=== PATIENT | female | born 1990 | race Caucasian/White ===

== ENCOUNTER → 2017-03-06 | Outpatient (CLI) | payer OTHER ==
[~2017-03-06] MED LIST: ACHYD1T PO; AMLO5TAB2 PO; ASP325T PO; CARV12.53 PO; CARV25TA PO; CIPR-225 PO; DCS100C PO; DIGO250T96 PO; FURO40TA4 PO; HYDR-3812 PO; IBP800T PO; LOSA1TAB15 PO; MAGN400T6 PO; ONDA4TAB8 PO; POTA20TA15 PO; PROP1TAB77 PO; QUIN20TA27 PO; QUIN5TAB PO; RABE20TA PO; TRM50T PO; VITA1TAB98 PO
== END ==
LOC: CARD 11:49
PROVIDERS: ATTEND Physician Assistant
DX: I11.0 Hypertensive heart disease with heart failure (principal); I50.9 Heart failure, unspecified; R06.00 Dyspnea, unspecified; I34.0 Nonrheumatic mitral (valve) insufficiency
CPT/HCPCS: 93306

== ENCOUNTER → 2017-06-05 | Outpatient (CLI) | payer OTHER ==
[~2017-06-05] MED LIST changes: +CATHETER FLUSH 10 ML SYR IV PRN; +HEParin (CENTRAL IV FLUSH) 500 UNIT/5 ML SYR ONE
--- NOTE | 2017-06-06 22:09 | STRESS TEST ---
DATE OF SERVICE: 06/05/2017 MUGA SCAN REPORT In summary, the patient was injected with 29.7 mCi of technetium-99 labelled RBCs. Images were acquired and reviewed in the left anterior oblique, right anterior oblique, anterior and lateral views. Review of the images showed the left ventricle to be in normal size with improvement in contractility, calculated ejection fraction 59%. CONCLUSION: Normal left ventricular size, calculated ejection fraction 59%. Job ID: [id number] DocumentID: [id number] Dictated Date: 06/06/2017 14:31:18 Lumber Puller Date: 06/06/2017 18:21:05 Dictated By: KIESHA JENSEN MD
== END ==
LOC: CARD 13:40
PROVIDERS: ATTEND Internal Medicine Cardiovascular Disease
DX: I50.9 Heart failure, unspecified (principal)
CPT/HCPCS: 78472

== ENCOUNTER → 2018-10-07 | Outpatient (CLI) | payer BC ==
[~2018-10-07] MED LIST changes: +ACHD5005 PO; -CATHETER FLUSH 10 ML SYR IV PRN; -HEParin (CENTRAL IV FLUSH) 500 UNIT/5 ML SYR ONE; -HYDR-3812 PO
== END ==
LOC: CARD 08:00
PROVIDERS: ATTEND Internal Medicine Cardiovascular Disease
DX: I50.9 Heart failure, unspecified (principal); R06.00 Dyspnea, unspecified; I08.1 Rheumatic disorders of both mitral and tricuspid valves; E66.9 Obesity, unspecified; Z68.39 Body mass index [BMI] 39.0-39.9, adult
CPT/HCPCS: 93306

== ENCOUNTER 2018-12-27 21:46 | Emergency (ER) | payer BC ==
[~2018-12-27] VITALS: Ht 154.9 cm; Wt 113.4 kg
--- NOTE | 2018-12-27 21:51 | NUR ---
arrives to ED ambulitory to restroom, sample obtained
--- NOTE | 2018-12-27 21:52 | NUR ---
patient arrives to room 5 ambulating independently. made comfortable in bed with call light in reach.
[2018-12-27] MEDS ORDERED: ONDANSETRON 4 MG/2 ML (SDV) Z0FRAN IVP ONE (22:00)
[2018-12-27] MEDS ORDERED: LACTATED RINGERS 1,000 ML IV ONE (22:00)
[2018-12-27] MEDS ORDERED: KETOROLAC 30 MG/ML VIAL IVP STA (22:00)
[2018-12-27] MEDS ORDERED: CARVEDILOL 25 MG (22:02)
[2018-12-27] MEDS ORDERED: AMLODIPINE BESYLATE 10 MG TABS (22:02)
[2018-12-27 22:03] LABS: BILIRUBIN,URINE NEGATIVE (NEGATIVE); CLARITY,URINE CLEAR; COLOR,URINE YELLOW; GLUCOSE, URINE (UA) NEGATIVE (NEGATIVE); KETONES,URINE NEGATIVE (NEGATIVE); LEUKOCYTE ESTERASE ,URINE NEGATIVE (NEGATIVE); NITRITE,URINE NEGATIVE (NEGATIVE); PH,URINE 8 (5-9); PROTEIN,URINE 3+ (NEGATIVE); UROBILINOGEN,URINE NORMAL (NORMAL)
--- NOTE | 2018-12-27 22:05 | ED Abdominal Pain ---
General Chief Complaint: General Problems/Pain Stated Complaint: L SIDE PAIN/NAUSEA Source of Information: Patient History of Present Illness Date Seen by Provider: Dec 27, 2018 Time Seen by Provider: 21:53 Initial Comments PT ARRIVES VIA POV FROM HOME C/O LLQ/LEFT PELVIC PAIN SINCE Sunday12/23/09 TOOK IBUPROFEN, ULTRAM AND BENADRYL TODAY AT 1730 WITHOUT RELIEF OTHERWISE HAS NOT TAKEN ANYTHING ELSE FOR PAIN SYMPTOMS NO DIFFERENT TODAY HAS NOT SOUGHT CARE UNTIL TODAY + NAUSEA, VOMITED X 3 NO DIARRHEA, NORMAL BM TODAY NO FEVER NO URINARY SYMPTOMS PT HAS HAD HYST/RSO IN 2014 PT HAS HISTORY OF KIDNEY STONES PT STATES "IT FEELS LIKE MY OVARY" PCP: JUDD WU AT DR. MARTIN'S OFFICE Allergies and Home Medications Allergies Coded Allergies: No Known Drug Allergies (Unverified , 01/05/10) Home Medications Aspirin 325 Mg Tab, 325 MG PO DAILY, (Reported) Carvedilol 25 Mg Tablet, 25 MG PO BID, (Reported) Furosemide Unknown Strength Tablet, Unknown Dose PO DAILY PRN PRN for DISCOMFORT, (Reported) Ketorolac Tromethamine 10 Mg Tablet, 10 MG PO Q6H Prescribed by: DREW CHAUDHRY on 12/27/18 2331 Levofloxacin 500 Mg Tablet, 500 MG PO DAILY Prescribed by: DREW CHAUDHRY on 12/27/18 2330 Tramadol HCl 50 Mg Tablet, 50 MG PO Q4H PRN for PAIN-MODERATE Prescribed by: DREW CHAUDHRY on 12/27/181 Patient Home Medication List Home Medication List Reviewed: Yes Review of Systems Review of Systems Constitutional: no symptoms reported; No fever Respiratory: No Symptoms Reported Cardiovascular: No Symptoms Reported Gastrointestinal: See HPI, Abdominal Pain; Denies Diarrhea; Nausea, Vomiting Genitourinary: No Symptoms Reported Musculoskeletal: no symptoms reported Skin: no symptoms reported Psychiatric/Neurological: No Symptoms Reported Endocrine: No Symptoms Reported Hematologic/Lymphatic: No Symptoms Reported Past Qnnmcps-Ohknbd-Sqgtik Hx Patient Social History Alcohol Use: Regular Use (COUPLE OF TIMES A WEEK) Recreational Drug Use: Yes (THC) Drug of Choice: THC Smoking Status: Current Everyday Smoker (<1 PK/WEEK) Recent Foreign Travel: No Contact w/Someone Who Travel: No Past Medical History Surgeries: Yes (HYST/RSO/ANTERIOR REPAIR 2014; URETERAL STENTS AND KIDNEY STONE REMOVAL; RIGHT WRIST FX/REPAIR CHILD) Hysterectomy, Oophorectomy, Orthopedic, Renal Respiratory: No Cardiac: Yes (CHF--POST CARDIOMYOPATHY) Hypertension Neurological: No Reproductive Disorders: Yes Female Reproductive Disorders: Menstrual Problems, Ovarian Cyst Genitourinary: Yes Kidney Stones Gastrointestinal: No Musculoskeletal: Yes (RIGHT WRIST FX/REPAIR CHILD) Fractures Endocrine: Yes (OBESITY) HEENT: No Cancer: No Psychosocial: No Integumentary: No Blood Disorders: No Family Medical History Asthma 19 FATHER 19 MOTHER G8 BROTHER G8 SISTER Cardiovascular disease 19 MOTHER Diabetes mellitus 19 MOTHER Drug abuse 19 FATHER 19 MOTHER Hypertension 19 FATHER 19 MOTHER No Family History of: AIDS Abdominal aortic aneurysm Alcoholism Alzheimer's disease Aphasia Arthritis Cataracts Colon cancer Completed stroke Dementia Gastroenteritis Kidney disease Myocardial infarction Parkinson's disease Prostate cancer Respiratory disorder Seizure disorder Severe allergy Thyroid disease Tuberculosis Physical Exam Vital Signs Vital Signs - First Documented 12/27/18 21:52 Temp 97.9 Pulse 86 Resp 20 B/P (MAP) 153/108 (123) Pulse Ox 96 Capillary Refill : Height/Weight/BMI Height: 5'1" Weight: 210lbs. oz. 95.882801ul; 39.67 BMI Method:Stated General Appearance: no apparent distress, obese, other (SITTING [place]-STYLE; DRAMATIC) Respiratory: normal breath sounds Cardiovascular: regular rate, rhythm, no murmur Gastrointestinal: normal bowel sounds, soft, no organomegaly, no pulsatile mass; No distended, No guarding, No rebound; tenderness (LLQ) Extremities: normal inspection Back: no CVA tenderness, other (MILD MID LOWER BACK TENDERNESS) Neurologic/Psychiatric: clinic receptionist II-XII nml as tested, no motor/sensory deficits, alert, normal mood/affect, oriented x 3 Skin: normal color, warm/dry; No rash Progress/Results/Core Measures Results/Orders Lab Results Laboratory Tests Test 12/27/18 21:49 12/27/18 22:05 Range/Units Urine Color YELLOW Urine Clarity CLEAR Urine pH 8 5-9 Urine Specific [place] 1.015 L 1.016-1.022 Urine Protein 3+ H NEGATIVE Urine Glucose (UA) NEGATIVE NEGATIVE Urine Ketones NEGATIVE NEGATIVE Urine Nitrite NEGATIVE NEGATIVE Urine Bilirubin NEGATIVE NEGATIVE Urine Urobilinogen NORMAL NORMAL MG/DL Urine Leukocyte Esterase NEGATIVE NEGATIVE Urine RBC (Auto) NEGATIVE NEGATIVE Urine RBC NONE /HPF Urine WBC NONE /HPF Urine Squamous Epithelial Cells 2-5 /HPF Urine Crystals NONE /LPF Urine Bacteria TRACE /HPF Urine Casts NONE /LPF Urine Mucus NEGATIVE /LPF Urine Culture Indicated NO Urine Opiates Screen NEGATIVE NEGATIVE Urine Oxycodone Screen NEGATIVE NEGATIVE Urine Methadone Screen NEGATIVE NEGATIVE Urine Propoxyphene Screen NEGATIVE NEGATIVE Urine Barbiturates Screen NEGATIVE NEGATIVE Ur Tricyclic Antidepressants Screen NEGATIVE NEGATIVE Urine Phencyclidine Screen NEGATIVE NEGATIVE Urine Amphetamines Screen NEGATIVE NEGATIVE Urine Methamphetamines Screen NEGATIVE NEGATIVE Urine Benzodiazepines Screen NEGATIVE NEGATIVE Urine Cocaine Screen NEGATIVE NEGATIVE Urine Cannabinoids Screen NEGATIVE NEGATIVE White Blood Count 19.7 H 4.3-11.0 10^3/uL Red Blood Count 4.72 4.35-5.85 10^6/uL Hemoglobin 14.1 11.5-16.0 G/DL Hematocrit 42 35-52 % Mean Corpuscular Volume 89 80-99 FL Mean Corpuscular Hemoglobin 30 25-34 PG Mean Corpuscular Hemoglobin Concent 34 32-36 G/DL Red Cell Distribution Width 13.5 10.0-14.5 % Platelet Count 442 H 130-400 10^3/uL Mean Platelet Volume 9.2 7.4-10.4 FL Neutrophils (%) (Auto) 88 H 42-75 % Lymphocytes (%) (Auto) 9 L 12-44 % Monocytes (%) (Auto) 3 0-12 % Eosinophils (%) (Auto) 0 0-10 % Basophils (%) (Auto) 0 0-10 % Neutrophils # (Auto) 17.3 H 1.8-7.8 X 10^3 Lymphocytes # (Auto) 1.8 1.0-4.0 X 10^3 Monocytes # (Auto) 0.5 0.0-1.0 X 10^3 Eosinophils # (Auto) 0.0 0.0-0.3 10^3/uL Basophils # (Auto) 0.0 0.0-0.1 10^3/uL Neutrophils % (Manual) 83 % Lymphocytes % (Manual) 10 % Monocytes % (Manual) 1 % Eosinophils % (Manual) 0 % Basophils % (Manual) 0 % Band Neutrophils 3 % Reactive Lymphocytes 3 % Polychromasia SLIGHT Anisocytosis SLIGHT Sodium Level 136 135-145 MMOL/L Potassium Level 4.1 3.6-5.0 MMOL/L Chloride Level 103 98-107 MMOL/L Carbon Dioxide Level 21 21-32 MMOL/L Anion Gap 12 5-14 MMOL/L Blood Urea Nitrogen 7 7-18 MG/DL Creatinine 0.69 0.60-1.30 MG/DL Estimat Glomerular Filtration Rate > 60 BUN/Creatinine Ratio 10 Glucose Level 158 H 70-105 MG/DL Calcium Level 9.9 8.5-10.1 MG/DL Corrected Calcium 9.5 8.5-10.1 MG/DL Total Bilirubin 0.8 0.1-1.0 MG/DL Aspartate Amino Transf (AST/SGOT) 10 5-34 U/L Alanine Aminotransferase (ALT/SGPT) 16 0-55 U/L Alkaline Phosphatase 83 40-136 U/L Total Protein 8.0 6.4-8.2 GM/DL Albumin 4.5 3.2-4.5 GM/DL Amylase Level 31 25-125 U/L Lipase 11 8-78 U/L Serum Alcohol < 10 <10 MG/DL My Orders Orders - DREW CHAUDHRY DO Drug Screen Stat (Urine) (12/27/18 21:53) Ua Culture If Indicated (12/27/18 21:53) Ed Iv/Invasive Line Start (12/27/18 22:00) Ct Abd/Pelvis Wo(Kidney Stone) (12/27/18 22:00) Acute Abd Series (12/27/18 22:00) Alcohol (12/27/18 22:00) Amylase (12/27/18 22:00) Cbc With Automated Diff (12/27/18 22:00) Comprehensive Metabolic Panel (12/27/18 22:00) Lipase (12/27/18 22:00) Ed Iv/Invasive Line Start (12/27/18 22:00) Lactated Ringers (Lr 1000 Ml Iv Solution (12/27/18 22:00) Ondansetron Injection (Zofran Injectio (12/27/18 22:00) Ketorolac Injection (Toradol Injection) (12/27/18 22:00) Manual Differential (12/27/18 22:05) Ceftriaxone For Iv Use (Rocephin For I (12/27/18 23:45) Rx-Tramadol Hcl (Rx-Ultram) (12/27/18 23:32) Fentanyl Injection (Sublimaze Injection (12/27/18 23:45) Medications Given in ED Current Medications Medications Dose Ordered Sig/Parveen Route Start Time Stop Time Status Last Admin Dose Admin Ceftriaxone Sodium 1000 mg/ Sterile Water 10 ml @ 200 mls/hr ONCE ONCE IV 12/27/18 23:45 12/27/18 23:47 12/27/18 23:40 200 MLS/HR Fentanyl Citrate 50 mcg ONCE ONCE IVP 12/27/18 23:45 12/27/18 23:46 12/27/18 23:40 50 MCG Lactated Ringer's 1,000 ml @ 0 mls/hr Q0M ONCE IV 12/27/18 22:00 12/27/18 22:02 DC 12/27/18 22:08 1,000 MLS/HR Ondansetron HCl 4 mg ONCE ONCE IVP 12/27/18 22:00 12/27/18 22:02 DC 12/27/18 22:08 4 MG Vital Signs/I&O 12/27/18 21:52 Temp 97.9 Pulse 86 Resp 20 B/P (MAP) 153/108 (123) Pulse Ox 96 Progress Progress Note : Progress Note PAIN EASED AT DISMISSAL DISCUSSED THE IMPORTANCE OF FOLLOW UP WITH DR. VAIL FOR FURTHER CARE AND EVALUATION OF PELVIC MASS. PT HAD HYST WITH RSO IN 2014 PT WAS HERE IN 2016 FOR THIS SAME LLQ PAIN, AND WAS TOLD AT THAT TIME SHE HAD A COMPLEX LEFT ADNEXAL MASS--WAS 3.2 CM AT THAT TIME--AND WAS ADVISED TO FOLLOW UP WITH DR. VAIL FOR FURTHER CARE AT THAT TIME Diagnostic Imaging Comments ACUTE ABDOMEN XRAYS--NO ACUTE PROCESS, PENDING RADIOLOGIST REVIEW CT ABDOMEN/PELVIS--COMPLEX PELVIC MASS, 7.4 X 7.5 X 5 CM--PER [facility] RADIOLOGIST VIA FAX AT 2310 AND DISCUSSED VIA PHONE AT 2311 Departure Impression Primary Impression: LLQ abdominal pain Additional Impressions: COMPLEX PELVIC MASS Leukocytosis Disposition: HOME, SELF-CARE Condition: Stable Departure-Patient Inst. Referrals: SINGH VAIL MD, JOHN D MD (PCP/Family) Primary Care Physician Patient Instructions: Acute Pelvic Pain (DC) Add. Discharge Instructions: FOLLOW UP WITH DR. VAIL NEXT WEEK FOR FURTHER CARE All discharge instructions reviewed with patient and/or family. Voiced understanding. Scripts Tramadol HCl (Ultram) 50 Mg Tablet 50 MG PO Q4H PRN for PAIN-MODERATE for 3 Days, TAB Prov: DREW CHAUDHRY DO 12/27/18 Ketorolac Tromethamine (Ketorolac Tromethamine) 10 Mg Tablet 10 MG PO Q6H for Pain, #15 TAB Prov: DREW CHAUDHRY DO 12/27/18 Levofloxacin (Levaquin) 500 Mg Tablet 500 MG PO DAILY for INFECTION, #10 TAB Prov: DREW CHAUDHRY DO 12/27/18 DREW CHAUDHRY DO Dec 27, 2018 22:05
[2018-12-27 22:08] LABS: BACTERIA,URINE TRACE /HPF
[2018-12-27 22:13] LABS: BASOPHILS % (AUTO) 0 % (0-10); EOSINOPHILS % (AUTO) 0 % (0-10); HEMATOCRIT 42 % (35-52); HEMOGLOBIN 14.1 G/DL (11.5-16.0); LYMPHOCYTES # (AUTO) 1.8 X 10^3 (1.0-4.0); LYMPHOCYTES % (AUTO) 9 % (12-44); MEAN CORPUSCULAR HEMOGLOBIN 30 PG (25-34); MEAN CORPUSCULAR HGB CONC 34 G/DL (32-36); MEAN CORPUSCULAR VOLUME 89 FL (80-99); MEAN PLATELET VOLUME 9.2 FL (7.4-10.4); MONOCYTES # (AUTO) 0.5 X 10^3 (0.0-1.0); MONOCYTES % (AUTO) 3 % (0-12); NEUTROPHILS # (AUTO) 17.3 X 10^3 (1.8-7.8); NEUTROPHILS % (AUTO) 88 % (42-75); PLATELET COUNT 442 10^3/uL (130-400); RED CELL DISTRIBUTION WIDTH 13.5 % (10.0-14.5); WHITE BLOOD COUNT 19.7 10^3/uL (4.3-11.0)
[2018-12-27 22:14] LABS: AMPHETAMINE SCREEN, URINE NEGATIVE (NEGATIVE); BARBITURATE SCREEN URINE NEGATIVE (NEGATIVE); BENZODIAZEPINES SCREEN URINE NEGATIVE (NEGATIVE); CANNABINOID SCREEN, URINE NEGATIVE (NEGATIVE); COCAINE SCREEN URINE NEGATIVE (NEGATIVE); METHADONE STAT NEGATIVE (NEGATIVE); METHAMPHETAMINE SCREEN URINE S NEGATIVE (NEGATIVE); OPIATE SCREEN URINE NEGATIVE (NEGATIVE); OXYCODONE STAT NEGATIVE (NEGATIVE); PROPOXYPHENE STAT NEGATIVE (NEGATIVE); TRICYCLIC ANTIDEPRESSANTS SCRE NEGATIVE (NEGATIVE)
[2018-12-27 22:29] LABS: ANISOCYTOSIS SLIGHT; BAND NEUTROPHILS 3 %; BASOPHILS % (MANUAL) 0 %; EOSINOPHILS % (MANUAL) 0 %; LYMPHOCYTES % (MANUAL) 10 %; MONOCYTES % (MANUAL) 1 %; NEUTROPHILS % (MANUAL) 83 %; POLYCHROMASIA SLIGHT; REACTIVE LYMPHOCYTES 3 %
[2018-12-27 22:33] LABS: ALANINE AMINOTRANSFERASE 16 U/L (0-55); ALBUMIN 4.5 GM/DL (3.2-4.5); ALKALINE PHOSPHATASE 83 U/L (40-136); AMYLASE 31 U/L (25-125); BILIRUBIN,TOTAL 0.8 MG/DL (0.1-1.0); BUN/CREATININE RATIO 10; CALCIUM 9.9 MG/DL (8.5-10.1); CARBON DIOXIDE 21 MMOL/L (21-32); CHLORIDE 103 MMOL/L (98-107); CREATININE SERUM 0.69 MG/DL (0.60-1.30); GFR ESTIMATED > 60; GLUCOSE 158 MG/DL (70-105); LIPASE 11 U/L (8-78); POTASSIUM 4.1 MMOL/L (3.6-5.0); SODIUM 136 MMOL/L (135-145)
[2018-12-27] MEDS ORDERED: SACU1TAB7 (22:34)
--- NOTE | 2018-12-27 22:45 | NUR ---
patient escorted to restroom and back to bed. call light in reach will continue to monitor
--- NOTE | 2018-12-27 22:52 | NUR ---
Dr Francois informed of patient verbalization of increased pain.
--- NOTE | 2018-12-27 23:15 | NUR ---
patient escorted to and from restroom. warm blanket given to patient for lower abd, ice pack to lower back in place as well. call light in place monitoring maintained.
[2018-12-27] MEDS ORDERED: LEVO500T2 PO (23:30)
[2018-12-27] MEDS ORDERED: KETO10TA PO (23:31)
[2018-12-27] MEDS ORDERED: TRAM-42 PO (23:31)
[2018-12-27] MEDS ORDERED: RX-TRAMADOL 50 MG (ULTRAM) TAB PPK#4 PO STA (23:32)
[2018-12-27] MEDS ORDERED: cefTRIAXone FOR IV USE 1,000 MG in WATER (STERILE) FOR INJECTION 10 ML IV ONE (23:45)
[2018-12-27] MEDS ORDERED: fentaNYL INJECTION 100 MCG/2 ML AMP IVP ONE (23:45)
--- NOTE | 2018-12-27 23:50 | NUR ---
discharge instructions reviewed with patient. currently patient is getting rocephin iv per mini infuser and was given fentanyl 50 mcg pain medication as ordered. patient denies questions about take home medications or discharge instructions at this time. SO is in room while instructions are given. call light in reach will conitinue to monitor.
[2018-12-27 23:51] VITALS: BP 143/97
--- NOTE | 2018-12-27 23:53 | NUR ---
Dr Francois in room to see patient
--- NOTE | 2018-12-28 00:12 | NUR ---
patient informs this RN that the pain medication did not help and her pain was still a 10/10. this is reported to Dr Francois. instructions are given for patient to take medications as prescribed and take an extra dose of benadryl tonight to help her rest, adn to fill the additional pain medication script the am. patient verbalizes understanding.
[2018-12-28 00:15] VITALS: BP 143/97
[2018-12-28] MEDS ORDERED: ONDA4TAB11 PO (00:18)
--- NOTE | 2018-12-28 06:22 | Diagnostic Imaging Report ---
INDICATION: Left flank pain FINDINGS: The lungs are clear. The heart size and vascularity are normal. There is no effusion or pneumothorax. The bowel gas pattern appeared normal. No abnormal fecal loading. No air-fluid levels. No free gas. IMPRESSION: No acute finding revealed at acute abdominal series Dictated by: Dictated on workstation # [id number]
--- NOTE | 2018-12-28 06:43 | Diagnostic Imaging Report ---
PROCEDURE: CT urinary tract, rule out kidney stone. TECHNIQUE: Multiple contiguous axial images were obtained through the abdomen and pelvis without the use of intravenous contrast. Auto Exposure Controls were utilized during the CT exam to meet ALARA standards for radiation dose reduction. INDICATION: Left flank pain radiating into the back. Exam compared 09/29/2015. FINDINGS: There is no hydroureteronephrosis. There is questionable small stone within left upper pole calyx. No ureteral calculus. No hydronephrosis. No perinephric edema. The urinary bladder normal. Per history, the right ovary is surgically absent and the uterus may be surgically absent but not provided with that history. Complex partly cystic pelvic mass slightly eccentric to the left is present measuring 8 cm x 6.1 cm with a small to moderate adjacent cul-de-sac free fluid. This may be hemorrhagic ovarian cyst endometrioma or neoplasm. Pelvic ultrasound recommended as its further evaluation. Adnexal torsion could not be definitively excluded in the appropriate scenario. The liver, gallbladder, spleen, adrenals, pancreas were negative. The aorta is nonaneurysmal. There is no bowel obstruction. The osseous structures and lung bases nonacute. IMPRESSION: Complex pelvic mass appears mixed cystic and solid. Differential considerations above warrants further workup with pelvic ultrasound. Small free fluid volume present. Reported previous right oophorectomy pathology presumed via left ovary today and is apparent previous hysterectomy. Questionable findings for punctate nonobstructing left upper pole renal calculus this is equivocal urinary tracts, otherwise normal and there is no hepatobiliary abnormality, bowel obstruction or other potential acute finding. Dictated by: Dictated on workstation # [id number]
== END 2018-12-28 00:15 | disposition home or self-care (01) ==
LOC: EDUNIT# 21:46 → ER 21:47
DX: R10.32 Left lower quadrant pain (principal); R10.2 Pelvic and perineal pain; D72.829 Elevated white blood cell count, unspecified; I11.0 Hypertensive heart disease with heart failure; I50.9 Heart failure, unspecified; I42.9 Cardiomyopathy, unspecified; E66.9 Obesity, unspecified; F12.10 Cannabis abuse, uncomplicated; F17.200 Nicotine dependence, unspecified, uncomplicated; Z79.82 Long term (current) use of aspirin; Z90.710 Acquired absence of both cervix and uterus; Z96.0 Presence of urogenital implants; Z82.49 Family history of ischemic heart disease and other diseases of the circulatory system; Z68.39 Body mass index [BMI] 39.0-39.9, adult; Z87.442 Personal history of urinary calculi; Z98.890 Other specified postprocedural states
CPT/HCPCS: 36415; 74022; 74176; 80053; 80306; 80320; 81000; 82150; 83690; 85007; 85027

== ENCOUNTER → 2020-04-16 | Outpatient (CLI) | payer BC ==
[~2020-04-16] MED LIST changes: +AMLODIPINE BESYLATE 10 MG TABS; +CARVEDILOL 25 MG; +KETO10TA PO; +LEVO500T2 PO; +ONDA4TAB11 PO; +SACU1TAB7; +TRAM-42 PO
== END ==
LOC: CARD 09:00
PROVIDERS: ATTEND Internal Medicine Cardiovascular Disease
DX: I08.1 Rheumatic disorders of both mitral and tricuspid valves (principal); I10 Essential (primary) hypertension
CPT/HCPCS: 93306

== ENCOUNTER → 2021-04-18 | Outpatient (CLI) | payer BC ==
--- NOTE | 2021-04-18 11:06 | Diagnostic Imaging Report ---
PROCEDURE: CT abdomen without contrast. TECHNIQUE: Multiple contiguous axial images were obtained through the abdomen without the use of intravenous contrast. Auto Exposure Controls were utilized during the CT exam to meet ALARA standards for radiation dose reduction. INDICATION: Abdominal bulge. Comparison is made with prior CT from 12/27/2018. The lung bases are clear. No discrete liver mass is identified. Gallbladder is unremarkable. There is no biliary duct dilatation. Pancreas and spleen are unremarkable. No adrenal mass is detected. Low-density lesion lower pole right kidney is noted, too small characterize. No definite calculi or hydronephrosis is identified. Aorta is nonaneurysmal. There is a large fat-containing supraumbilical hernia with abdominal wall defect measuring approximately 3.5 cm. No herniated bowel loops or evidence of bowel obstruction is identified. No abdominal ascites is detected. IMPRESSION: Fat-containing supraumbilical midline ventral hernia. Dictated by: Dictated on workstation # [id number]
== END ==
LOC: RAD 10:15
PROVIDERS: ATTEND Nurse Practitioner Family
DX: K43.9 Ventral hernia without obstruction or gangrene (principal)
CPT/HCPCS: 74150

== ENCOUNTER → 2021-07-28 | Outpatient (CLI) | payer BC | END | disposition home or self-care (01) | LOC: PREOP 05:32 | PROVIDERS: ATTEND Surgery | DX: Z01.818 Encounter for other preprocedural examination (principal) ==

== ENCOUNTER → 2023-04-17 | Outpatient (CLI) | payer BC | LOC: CARD 07:53 | PROVIDERS: ATTEND Internal Medicine Cardiovascular Disease | DX: I10 Essential (primary) hypertension (principal) | CPT/HCPCS: 93306 ==